=== PATIENT | female | born 1990 | race Caucasian/White ===

== ENCOUNTER 2022-09-12 22:39 | Inpatient (IN) | payer OTHER, BC ==
[2022-09-13] MEDS ORDERED: Sodium Chloride 0.9% 2.5 ML Syringe FLUSH PRN (00:22)
[2022-09-13] MEDS ORDERED: Carboprost Tromethamine 250 MCG/1 ML Amp IM PRN (00:22)
[2022-09-13] MEDS ORDERED: Water For Irrigation,Sterile 1,000 ML Container IRR PRN (00:22)
[2022-09-13] MEDS ORDERED: Misoprostol 200 MCG Tab PO PRN (00:22)
[2022-09-13] MEDS ORDERED: Sodium Chloride 0.9% 10 ML Syringe FLUSH PRN (00:22)
[2022-09-13] MEDS ORDERED: Butorphanol 1 MG/ML SDV IVPUSH PRN (00:22)
[2022-09-13] MEDS ORDERED: Sodium Chloride 0.9% 20 ML SDV IV PRN (00:22)
[2022-09-13] MEDS ORDERED: Lidocaine 1% 50 ML MDV INJECT PRN (00:22)
[2022-09-13] MEDS ORDERED: Tranexamic Acid 1,000 MG in Sodium Chloride 0.9% 100 ML IV PRN (00:22)
[2022-09-13] MEDS ORDERED: Methylergonovine 0.2 MG/1 ML Amp IM PRN (00:22)
[2022-09-13] MEDS ORDERED: Oxytocin/0.9 % Sodium Chloride 30 UNIT/500 ML BAG IV SCH (00:30)
[2022-09-13] MEDS: Lactated Ringers 1,000 ML IV SCH ×4 (00:59→09:30)
[2022-09-13] MEDS ORDERED: Ropivacaine/PF 400 MG/200 ML PCA ONE (01:38)
[2022-09-13] MEDS ORDERED: Phenylephrine HCl In 0.9% NaCl 1 MG/10 ML Vial IVPUSH PRN (02:07)
[2022-09-13] MEDS ORDERED: ePHEDrine 50 MG/ML SDV IVPUSH PRN ×2 (02:07)
[2022-09-13] MEDS ORDERED: Ropivacaine HCl/PF 400 MG in Premix Bag 1 BAG EPIDUR SCH (02:15)
[2022-09-13] MEDS: Phenylephrine HCl In 0.9% NaCl 1 MG/10 ML Vial IVPUSH SCH ×2 (05:34→05:35)
[2022-09-13] MEDS ORDERED: Witch Hazel Medicated Pads 40/Jar TOP PRN (12:17)
[2022-09-13] MEDS ORDERED: Acetaminophen 500 MG Tab PO PRN (12:17)
[2022-09-13] MEDS ORDERED: oxyCODONE 5 MG Tab PO PRN (12:17)
[2022-09-13] MEDS ORDERED: Bisacodyl 10 MG Supp RECTAL PRN (12:17)
[2022-09-13] MEDS ORDERED: Ibuprofen 400 MG Tab PO PRN (12:17)
[2022-09-13] MEDS ORDERED: Benzocaine/Menthol 20%-0.5% Spray 78 GM Cannister TOP PRN (12:17)
[2022-09-13] MEDS ORDERED: Lanolin 100% Cream 7 GM Tube TOP PRN (12:17)
[2022-09-13] MEDS: Ibuprofen 800 MG Tab PO PRN (14:01)
[2022-09-13] MEDS: Acetaminophen 500 MG Tab PO PRN ×2 (14:02→20:24)
[2022-09-13] MEDS: Docusate Sodium 100 MG Cap PO PRN (20:24)
[2022-09-14] MEDS: Ibuprofen 800 MG Tab PO PRN ×2 (00:48→08:24)
[2022-09-14] MEDS: Docusate Sodium 100 MG Cap PO PRN (08:25)
== END 2022-09-14 14:28 | disposition home or self-care (01) | DRG 807 ==
LOC: MW.OBCHECK 22:39 → MW.OB 22:40 → MW.OBCHECK 09-13 00:22 → OBSVTOIN 09-13 11:55 → MW.OB 09-13 16:55
PROVIDERS: ADMIT Obstetrics & Gynecology; ATTEND Obstetrics & Gynecology
PROC: 10E0XZZ Delivery of Products of Conception, External Approach (ICD-10-PCS; principal; 2022-09-13)
PROC: 0KQM0ZZ Repair Perineum Muscle, Open Approach (ICD-10-PCS; 2022-09-13)
PROC: 3E0R3BZ Introduction of Anesthetic Agent into Spinal Canal, Percutaneous Approach (ICD-10-PCS; 2022-09-13)
PROC: 00HU33Z Insertion of Infusion Device into Spinal Canal, Percutaneous Approach (ICD-10-PCS; 2022-09-13)
DX: O69.81X0 Labor and delivery complicated by cord around neck, without compression, not applicable or unspecified (principal); Z37.0 Single live birth; O70.1 Second degree perineal laceration during delivery; Z3A.39 39 weeks gestation of pregnancy; Z85.3 Personal history of malignant neoplasm of breast; Z90.13 Acquired absence of bilateral breasts and nipples; Z20.822 Contact with and (suspected) exposure to COVID-19; Z98.82 Breast implant status
CPT/HCPCS: 36415; 51702; 59025; 59409; 82803; 84112; 85014; 85018; 85027; 86592; 86850; 86900; 86901; A9270-GY; J2590; J2795; J7120; U0002

== ENCOUNTER 2025-06-10 06:31 | Inpatient (IN) | payer BC, OTHER ==
[2025-06-10] MEDS ORDERED: Terbutaline 1 MG/ML SDV SUBCUT PRN (07:58)
[2025-06-10] MEDS ORDERED: Water For Irrigation,Sterile 1,000 ML Container IRR PRN (07:58)
[2025-06-10] MEDS ORDERED: Butorphanol 1 MG/ML SDV IVPUSH PRN (07:58)
[2025-06-10] MEDS ORDERED: Lanolin 100% Cream 7 GM Tube TOP PRN (07:58)
[2025-06-10] MEDS ORDERED: Sodium Chloride 0.9% 10 ML Syringe FLUSH PRN (07:58)
[2025-06-10] MEDS ORDERED: Carboprost Tromethamine 250 MCG/1 mL Vial IM PRN ×2 (07:58)
[2025-06-10] MEDS ORDERED: Ondansetron 4 MG/2 ML SDV IVPUSH PRN ×2 (07:58)
[2025-06-10] MEDS ORDERED: Sodium Chloride 0.9% 2.5 ML Syringe FLUSH PRN (07:58)
[2025-06-10] MEDS ORDERED: Oxytocin/0.9 % Sodium Chloride 30 UNIT/500 ML BAG IV SCH (08:00)
[2025-06-10] MEDS: Lactated Ringers 1,000 ML IV SCH (08:35)
[2025-06-10] MEDS ORDERED: Nalbuphine 10 MG/1 ML Vial IVPUSH ONE (09:00)
[2025-06-10 09:02] LABS: MEAN PLATELET VOLUME 12.0 fL (9.4-12.3); NRBC ABSOLUTE 0.00 K/uL (0.00-0.02); NRBC PERCENT 0.0 /100WBC (0.0-0.2); PLATELET COUNT,PLT 161 K/uL (150-400); RED BLOOD CELL COUNT 4.41 M/uL (4.10-5.30); WHITE BLOOD CELL COUNT,WBC 14.80 K/uL (3.9-11.3)
[2025-06-10] MEDS: Ropivacaine HCl/PF 400 MG in Premix Bag 1 BAG EPIDUR SCH (09:35)
[2025-06-10] MEDS ORDERED: ePHEDrine 50 MG/ML SDV IVPUSH PRN (09:49)
[2025-06-10] MEDS ORDERED: Ropivacaine HCl/PF 200 ML ONE (09:53)
[2025-06-10] MEDS ORDERED: dexmedeTOMIDine HCl 200 MCG/2 ML SDV EPIDUR SCH (10:00)
[2025-06-10] MEDS: Oxytocin/0.9 % Sodium Chloride 30 UNIT/500 ML BAG IV SCH (11:38)
[2025-06-10 14:23] LABS: PH,UMBILICAL ARTERIAL 7.25 (7.18-7.38); PH,UMBILICAL VENOUS 7.329 (7.25-7.45)
[2025-06-10] MEDS: Benzocaine/Menthol 20%-0.5% Spray 78 GM Cannister TOP PRN (17:00)
[2025-06-10] MEDS: Witch Hazel Medicated Pads 40/Jar TOP PRN (17:00)
[2025-06-11 05:37] LABS: MEAN PLATELET VOLUME 12.0 fL (9.4-12.3); NRBC ABSOLUTE 0.00 K/uL (0.00-0.02); NRBC PERCENT 0.0 /100WBC (0.0-0.2); PLATELET COUNT,PLT 140 K/uL (150-400); RED BLOOD CELL COUNT 3.70 M/uL (4.10-5.30); WHITE BLOOD CELL COUNT,WBC 14.28 K/uL (3.9-11.3)
[2025-06-11] MEDS: Prenatal Multivitamin with Calcium/Folic Acid/Iron Tab PO SCH (08:44)
== END 2025-06-11 18:35 | disposition home or self-care (01) | DRG 560 ==
LOC: MW.OBCHECK 06:31 → MW.OB 06:33 → OBSVTOIN 12:57 → MW.OBCHECK 12:57 → MW.OB 15:53
PROVIDERS: ADMIT Obstetrics & Gynecology; ATTEND Obstetrics & Gynecology
PROC: 10E0XZZ Delivery of Products of Conception, External Approach (ICD-10-PCS; principal; 2025-06-10)
PROC: 3E0R3BZ Introduction of Anesthetic Agent into Spinal Canal, Percutaneous Approach (ICD-10-PCS; 2025-06-10)
PROC: 0KQM0ZZ Repair Perineum Muscle, Open Approach (ICD-10-PCS; 2025-06-10)
DX: O70.1 Second degree perineal laceration during delivery (principal); Z3A.38 38 weeks gestation of pregnancy; Z37.0 Single live birth; Z98.890 Other specified postprocedural states; Z90.13 Acquired absence of bilateral breasts and nipples; Z79.899 Other long term (current) drug therapy
CPT/HCPCS: 01967; 36415; 51702; 59025; 59409; 82803; 84112; 85027; 86592; 86850; 86900; 86901; A9270-GY; J0665; J2371; J2590; J2795; J7120